=== PATIENT | female | born 2000 | race Caucasian/White ===

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

== ENCOUNTER 2019-09-17 | Emergency (ER) | payer OTHER ==
[~2019-09-17] MED LIST: ONDANSETRON4 MG PO
[2019-09-17] MEDS ORDERED: BLISOVI FE 1.5/1 TAB PO (14:05)
== END 2019-09-17 15:45 | disposition home or self-care (01) | DRG 563 ==
DX: S46.311A Strain of muscle, fascia and tendon of triceps, right arm, initial encounter (principal); X50.3XXA Overexertion from repetitive movements, initial encounter; X50.0XXA Overexertion from strenuous movement or load, initial encounter; Y93.B2 Activity, push-ups, pull-ups, sit-ups